=== PATIENT | female | born 1965 | race Caucasian/White ===

== ENCOUNTER 2016-10-21 08:52 | Observation (INO) | payer OTHER ==
[2016-10-21 09:08] VITALS: BMI 33.6
[2016-10-21] MEDS ORDERED: ASPIRIN 325 MG TAB PO ONE (09:18)
[2016-10-21] MEDS ORDERED: SODIUM CHLORIDE 0.9% 3 ML FLUSH FLUSH PRN (09:18)
[2016-10-21] MEDS ORDERED: NS 1,000 ML IV ONE ×2 (09:18)
--- NOTE | 2016-10-21 09:19 | EDPRACDOC ---
<Bhavani Johnson - Last Filed: 10/21/16 11:06> - General Information Information Source: Patient, Family () Mode of Arrival: Car - History of Present Illness Onset: 1 WEEK HPI: PT STATES FOR THE LAST WEEK WHEN SHE HAS BEEN WALKING THE DOG AND DOING NORMAL DAILY ACTIVITIES SHE HAS BEEN BECOMING MORE SOB WITH CHEST HEAVINESS/PRESSURE. NO NAUSEA, RADIATING PAIN DIAPHORESIS OR ALLEVIATING FACTORS AT THIS TIME. PT STATES LAST STRESS TEST APPROX 10 YRS AGO. HAS H/O POLYCYTHEMIA VERA (ELEVATED HGB/HCT) THIS HAS SINCE SUBSIDED AND IS NOT ON TREATMENT OR DOING PERIODIC PHLEBOTOMIES. Chest Pain Location: Reports: Substernal Pain Radiation: Reports: None Symptoms Occur: Reports: Gradually, With light exertion Cardiac Risk Factors: Reports: Hypertension (OVER THE LAST FEW MONTHS NOTICED ELEVATED BP) Cardiac History of: Reports: Stress Test (10 YRS AGO) PE Risk Factors: Reports: None Medications within 24 Hours: Reports: None Prehospital Care: Reports: None Pain Came On: Reports: Gradually Pain Status: Present Now Pain Description: Reports: Pressure, Heavy Pain Severity: Mild Pain Worsens With: Reports: Exertion Pain Improves With: Reports: Nothing Associated Signs and Symptoms: Reports: SOB (WITH EXERTION) <Carlotta Lei - Last Filed: 10/21/16 12:16> - General Information Chief Complaint: Chest Pain Stated Complaint: IRREGULAR HEARTBEAT Time Seen by Provider: 10/21/16 09:18 Home Medications: Home Medications No Home Medications 07/12/15 Allergies/Adverse Reactions: Allergies Allergy/AdvReac Type Severity Reaction Status Date / Time No Known Allergies Allergy Verified 08/06/16 10:51 ED Past Medical History - History Reviewed Yes Nurses notes reviewed and agree except as marked Travel Outside of [place] in the Last 3 Months?: No - Patient Medical History Cardiac History: Reports: Stress Test (10 YRS AGO) Respiratory History: Denies: Pneumonia Systemic History: Denies: Cancer Additional Past Medical History: H/O POLYCYTHEMIA VERA HAS SUBSIDED SINCE Surgical History: Reports: Hysterectomy - Family Medical History Reports: Cancer (DAD), Cardiac Disorders (GRANDMOTHER). Denies: Hypertension, Diabetes, Stroke - Social Medical History Smoking Status: Never smoker ETOH: None Substance Abuse: None Lives With: Spouse Lives In: Home <Carlotta Lei - Last Filed: 10/21/16 12:16> EDM Review of Systems - Review of Systems ROS Negative Except as Marked: Yes All systems reviewed and were negative except as marked Constitutional: No Symptoms Reported. negative: Fever, Chills, Weakness, Fatigue, Loss of Appetite Eyes: No Symptoms Reported. negative: Redness, Blurred Vision, Double Vision, Discharge, Pain, Light Sensitive, Photophobia Ears: No Symptoms Reported. negative: Pain, Hearing Loss, Drainage, Ear Pulling Throat: No Symptoms Reported. negative: Pain, Swelling Nose: No Symptoms Reported. negative: Congestion, Bleeding, Discharge, Injection, Swelling, Deformity, Ecchymosis, Tender, Abrasion, Laceration Mouth: No Symptoms Reported. negative: Pain, Drooling Respiratory: Shortness of Breath (WITH EXERTION). negative: Barky Cough, Brassy Cough, Cough, Hemoptysis, Wheezing Cardiovascular: Chest Pain (EXERTIONAL HEAVY PRESSURE). negative: Cyanosis, Edema, Orthopnea, Palpitations, PND, Syncope, Skin Mottling Gastrointestinal: No Symptoms Reported. negative: Pain, Constipation, Nausea, Vomiting, Diarrhea, Melena, Formula Intolerance Genitourinary: No Symptoms Reported. negative: Dysuria, Hematuria, Frequency, Discharge, Bleeding, Testicular Pain, Neurological: No Symptoms Reported. negative: Headache, Dizziness, Seizure, Numbness, Weakness, Speech Difficulty, Gait Difficulty Musculoskeletal: No Symptoms Reported. negative: Neck, Chestwall, Ribs, Back, Shoulder, Arm, Elbow, Forearm, Wrist, Hand, Pelvis, Hip, Femur, Knee, Leg, Ankle , Foot Integumentary: No Symptoms Reported. negative: Itching, Rash, Bruising, Wound Allergic/Immunologic: No Symptoms Reported. negative: Hives, Itching Hematologic: No Symptoms Reported. negative: Lymphadenopathy, Easy Bruising, Easy Bleeding Endocrine: No Symptoms Reported. negative: Weight Gain, Weight Loss Psychiatric: No Symptoms Reported. negative: Anxiety, Depression, Hallucinations, Insomnia, Suicidal <Carlotta Lei - Last Filed: 10/21/16 12:16> - Physical Exam Last recorded Vital Signs: Last Vital Signs Temp 97.5 F 10/21/16 09:05 Pulse 61 10/21/16 10:14 Resp 20 10/21/16 10:14 BP 131/69 10/21/16 10:14 Pulse Ox 100 10/21/16 10:14 Oxygen Pulse Oxygen Saturation 100 O2 Device Room Air Oxygen Flow Rate Fraction of Inspired Oxygen ( FIO2) <Bhavani Johnson - Last Filed: 10/21/16 11:06> - Physical Exam Constitutional: No apparent distress, Alert (Awake) Oriented to: Time, Person, Place Last recorded Vital Signs: Last Vital Signs Temp 97.5 F 10/21/16 09:05 Pulse 62 10/21/16 09:14 Resp 20 10/21/16 09:14 BP 135/73 10/21/16 09:14 Pulse Ox 97 10/21/16 09:14 Oxygen Pulse Oxygen Saturation 97 O2 Device Room Air Oxygen Flow Rate Fraction of Inspired Oxygen ( FIO2) - HEENT Head: Normal ( normocephalic) Eye Exam: Normal (PERRL, EOMI, Sclera white) Oropharynx: Normal (Pharynx:Moist without exudate,Gums-no swelling) Tympanic Membrane: Normal ENT EAC: Normal TMJ: Normal Nose: No Symptoms Reported (septum midline) Neck: Normal (FROM, trachea at midline) - Respiratory/Cardiovascular Respiratory: Normal - CTA (BBS clear to auscultation without adventitious sounds ) Cardiovascular: Normal (RRR without murmur, gallop or rub) - GI Auscultation: Normal (NABS) Palpation: Normal (Soft,No rebound or guarding, non distended) Tenderness: Non tender Hamilton's Sign: Negative - Bladder: Normal - Musculoskeletal Back: Normal (Non-Tender) Extremities: Normal (Normal tone, Pulses 2+ No cyanosis or edema, FROM) - Integumentary Skin: Normal, Warm, Dry Lymphatics: Normal (no adenopathy) - Neurologic Memory Impaired: Normal Motor Function: Normal (Normal tone, Pulses 2+ No cyanosis or edema, FROM) Cranial Nerve: Normal (CN II-X11 intact sensation, strength 5/5) Cerebellar: Normal Mood Description: Normal Perception: Normal <Carlotta Lei - Last Filed: 10/21/16 12:16> ED Chest Pain Exam - Respiratory/Cardiovascular Respiratory: Normal - CTA Cardiovascular/Chest: Normal Radial Pulse: Normal Femoral Pulse: Normal Pedal Pulse: Normal Carotid Arteries: Normal Chest Palpation: Normal <Carlotta Lei - Last Filed: 10/21/16 12:16> - Results 10/21/16 09:35 10/21/16 09:35 WBC 3.9 xk/uL (3.8-10.8) 10/21/16 09:35 RBC 5.28 xM/uL (4.20-5.40) 10/21/16 09:35 Hgb 15.9 g/dL (12.0-16.0) 10/21/16 09:35 Hct 46.5 % (36-47) 10/21/16 09:35 MCV 88 fL (81-99) 10/21/16 09:35 MCH 30.1 pg (27-32) 10/21/16 09:35 MCHC 34.2 g/dl (33-36) 10/21/16 09:35 RDW 12.8 % (11.5-14.5) 10/21/16 09:35 Plt Count 176 xk/uL (130-400) 10/21/16 09:35 MPV 7.4 fL (7.4-10.4) 10/21/16 09:35 Neut % (Auto) 49.9 % (45-76) 10/21/16 09:35 Lymph % (Auto) 32.8 % (17-44) 10/21/16 09:35 Todd % (Auto) 9.1 % (3-10) 10/21/16 09:35 Eos % (Auto) 7.8 % (0-5) H 10/21/16 09:35 Baso % (Auto) 0.4 % (0-2) 10/21/16 09:35 Absolute Neuts (auto) 1.91 xk/uL (1.7-8.2) 10/21/16 09:35 Absolute Lymphs (auto) 1.25 xk/uL (0.65-4.75) 10/21/16 09:35 PT 10.8 SEC (9.2-11.2) 10/21/16 09:35 INR 1.1 10/21/16 09:35 APTT 39.5 SEC (22-35) H 10/21/16 09:35 Sodium 140 mEq/L (137-146) 10/21/16 09:35 Potassium 3.9 mEq/L (3.5-5.1) 10/21/16 09:35 Chloride 109 mEq/L (98-107) H 01/31/17 09:35 Carbon Dioxide 20 mMOL/L (22-33) L 10/21/16 09:35 Anion Gap 15 mEq/L (8-16) 10/21/16 09:35 BUN 16 MG/DL (7-17) 10/21/16 09:35 Creatinine 0.50 MG/DL (0.52-1.04) L 10/21/16 09:35 Estimated GFR (MDRD) > 60 mL/min (>=60) 10/21/16 09:35 Glucose 84 MG/DL (70-99) 10/21/16 09:35 Calculated Osmolality 269 MOs/Kg (270-290) L 10/21/16 09:35 Calcium 9.2 MG/DL (8.4-10.2) 10/21/16 09:35 Total Bilirubin 0.6 MG/DL (0.2-1.3) 10/21/16 09:35 AST 32 IU/L (14-36) 10/21/16 09:35 ALT 52 IU/L (9-52) 10/21/16 09:35 Alkaline Phosphatase 107 IU/L (38-126) 10/21/16 09:35 Troponin I < 0.01 ng/mL (<.04) 10/21/16 09:35 Wsv-Q-Nlcetknckpi Pept 56 pg/mL (0-900) 10/21/16 09:35 Total Protein 6.8 G/DL (6.3-8.2) 10/21/16 09:35 Albumin 4.2 G/DL (3.5-5.0) 10/21/16 09:35 Urine Color Yellow 10/21/16 09:50 Urine Clarity Clear 10/21/16 09:50 Urine pH 5.0 (5.0-8.0) 10/21/16 09:50 Ur Specific [place] 1.020 (1.003-1.035) 10/21/16 09:50 Urine Protein Neg (NEG/TRACE) 10/21/16 09:50 Urine Glucose (UA) Neg (NEGATIVE) 10/21/16 09:50 Urine Ketones Neg (NEGATIVE) 10/21/16 09:50 Urine Occult Blood Trace (NEG/TRACE) 10/21/16 09:50 Urine Nitrite Neg (NEGATIVE) 10/21/16 09:50 Urine Bilirubin Neg (NEGATIVE) 10/21/16 09:50 Urine Urobilinogen 0.2 MG/DL (0-1) 10/21/16 09:50 Ur Leukocyte Esterase Trace (NEGATIVE) 10/21/16 09:50 Urine RBC 0-2 (0-5) 10/21/16 09:50 Urine WBC 2-5 (0-5) 10/21/16 09:50 Ur Epithelial Cells 2+ 10/21/16 09:50 Urine Bacteria Few (NEG/FEW) 10/21/16 09:50 Urine Mucus Occ (NEG/OCC) 10/21/16 09:50 Lab Results 10/21/16 10/21/16 10/21/16 09:50 09:35 09:35 WBC 3.9 RBC 5.28 Hgb 15.9 Hct 46.5 MCV 88 MCH 30.1 MCHC 34.2 RDW 12.8 Plt Count 176 MPV 7.4 Neut % (Auto) 49.9 Lymph % (Auto) 32.8 [place] % (Auto) 9.1 Eos % (Auto) 7.8 H Baso % (Auto) 0.4 Absolute Neuts (auto) 1.91 Absolute Lymphs (auto) 1.25 PT 10.8 INR 1.1 APTT 39.5 H Sodium Potassium Chloride Carbon Dioxide Anion Gap BUN Creatinine Estimated GFR (MDRD) Glucose Calculated Osmolality Calcium Total Bilirubin AST ALT Alkaline Phosphatase Troponin I Lbo-Y-Jlragbsdyhz Pept Total Protein Albumin Urine Color Yellow Urine Clarity Clear Urine pH 5.0 Ur Specific [place] 1.020 Urine Protein Neg Urine Glucose (UA) Neg Urine Ketones Neg Urine Occult Blood Trace Urine Nitrite Neg Urine Bilirubin Neg Urine Urobilinogen 0.2 Ur Leukocyte Esterase Trace Urine RBC 0-2 Urine WBC 2-5 Ur Epithelial Cells 2+ Urine Bacteria Few Urine Mucus Occ 10/21/16 09:35 WBC RBC Hgb Hct MCV MCH MCHC RDW Plt Count MPV Neut % (Auto) Lymph % (Auto) [place] % (Auto) Eos % (Auto) Baso % (Auto) Absolute Neuts (auto) Absolute Lymphs (auto) PT INR APTT Sodium 140 Potassium 3.9 Chloride 109 H Carbon Dioxide 20 L Anion Gap 15 BUN 16 Creatinine 0.50 L Estimated GFR (MDRD) > 60 Glucose 84 Calculated Osmolality 269 L Calcium 9.2 Total Bilirubin 0.6 AST 32 ALT 52 Alkaline Phosphatase 107 Troponin I < 0.01 Fmg-E-Ayhzggvlmfy Pept 56 Total Protein 6.8 Albumin 4.2 Urine Color Urine Clarity Urine pH Ur Specific [place] Urine Protein Urine Glucose (UA) Urine Ketones Urine Occult Blood Urine Nitrite Urine Bilirubin Urine Urobilinogen Ur Leukocyte Esterase Urine RBC Urine WBC Ur Epithelial Cells Urine Bacteria Urine Mucus Laboratory Results - last 24 hr 10/21/16 10/21/16 10/21/16 09:35 09:35 09:35 WBC 3.9 RBC 5.28 Hgb 15.9 Hct 46.5 MCV 88 MCH 30.1 MCHC 34.2 RDW 12.8 Plt Count 176 MPV 7.4 Neut % (Auto) 49.9 Lymph % (Auto) 32.8 Todd % (Auto) 9.1 Eos % (Auto) 7.8 H Baso % (Auto) 0.4 Absolute Neuts (auto) 1.91 Absolute Lymphs (auto) 1.25 PT 10.8 INR 1.1 APTT 39.5 H Sodium 140 Potassium 3.9 Chloride 109 H Carbon Dioxide 20 L Anion Gap 15 BUN 16 Creatinine 0.50 L Estimated GFR (MDRD) > 60 Glucose 84 Calculated Osmolality 269 L Calcium 9.2 Total Bilirubin 0.6 AST 32 ALT 52 Alkaline Phosphatase 107 Troponin I < 0.01 Ewf-Z-Siazawkjqkk Pept 56 Total Protein 6.8 Albumin 4.2 Urine Color Urine Clarity Urine pH Ur Specific [place] Urine Protein Urine Glucose (UA) Urine Ketones Urine Occult Blood Urine Nitrite Urine Bilirubin Urine Urobilinogen Ur Leukocyte Esterase Urine RBC Urine WBC Ur Epithelial Cells Urine Bacteria Urine Mucus 10/21/16 09:50 WBC RBC Hgb Hct MCV MCH MCHC RDW Plt Count MPV Neut % (Auto) Lymph % (Auto) [place] % (Auto) Eos % (Auto) Baso % (Auto) Absolute Neuts (auto) Absolute Lymphs (auto) PT INR APTT Sodium Potassium Chloride Carbon Dioxide Anion Gap BUN Creatinine Estimated GFR (MDRD) Glucose Calculated Osmolality Calcium Total Bilirubin AST ALT Alkaline Phosphatase Troponin I Qqk-Q-Dolqqixfuyx Pept Total Protein Albumin Urine Color Yellow Urine Clarity Clear Urine pH 5.0 Ur Specific [place] 1.020 Urine Protein Neg Urine Glucose (UA) Neg Urine Ketones Neg Urine Occult Blood Trace Urine Nitrite Neg Urine Bilirubin Neg Urine Urobilinogen 0.2 Ur Leukocyte Esterase Trace Urine RBC 0-2 Urine WBC 2-5 Ur Epithelial Cells 2+ Urine Bacteria Few Urine Mucus Occ Laboratory Results 10/21/16 09:35 10/21/16 09:35 <Bhavani Johnson - Last Filed: 10/21/16 11:06> - Differential Diagnosis Angina, Myocardial infarction, Other (UNSTABLE ANGINA) - Action Patient received Aspirin within last 24 hours?: No ASA given in the ED: Yes Patient received Beta Gabriela within last 24hrs: No - Results All Results Reviewed and Normal except as Highlighted below: Yes 10/21/16 09:35 10/21/16 09:35 - EKG EKG #1 EKG Time: 09:00 -: Yes EKG interpreted by me Rate: bpm: 68 [place]: Normal Rhythm: NSR Block: None Hypertrophy: None ST: Normal - Diagnostic Imaging CXR Image interpreted by: Radiologist IMPRESSION: No active disease. Right IJ Port-A-Cath in place. <Carlotta Lei - Last Filed: 10/21/16 12:16> - Departure Education/Counseling Given To: Patient, Family Member Education/Counseling Given Regarding: Diagnosis, Treatment, Prognosis Decision to Admit Time: 11:07 Decision to admit date: 10/21/16 Decision to admit: from ED - Physician Consulted Hospitalist Time Called: 11:07 Provider Called: Jose Elias Gooden Time Economics Professor Returned Call: 11:07 <Bhavani Johnson - Last Filed: 10/21/16 11:06> <Carlotta Lei - Last Filed: 10/21/16 12:16> - Departure Condition: Stable Final Diagnosis: Chest pain Qualifiers: Chest pain type: unspecified Qualified Code(s): R07.9 - Chest pain, unspecified Instructions: Chest Pain (ED), Chest Wall Pain (ED) Referrals: Gregg Anderson II, MD [Primary Care Provider] - One Week Prescriptions: No Action No Home Medications 0 NA DIR #0 info
[2016-10-21 09:48] LABS: AUTOMATED BASOPHIL 0.4 % (0-2); AUTOMATED EOSINOPHIL 7.8 % (0-5); AUTOMATED LYMPH 32.8 % (17-44); AUTOMATED MONOCYTE 9.1 % (3-10); AUTOMATED NEUTROPHIL 49.9 % (45-76); MPV 7.4 fL (7.4-10.4)
[2016-10-21 09:58] LABS: RBC/URINE 0-2 (0-5)
[2016-10-21 09:59] LABS: PARTIAL THROMB. TIME 39.5 SEC (22-35); PT-INR 1.1
--- NOTE | 2016-10-21 10:07 | DIRPT ---
CLINICAL DATA: Chest pain starting last week when she was walking the dog EXAM: PORTABLE CHEST 1 VIEW COMPARISON: 10/19/2007 FINDINGS: Cardiomediastinal silhouette is unremarkable. Right IJ Port-A-Cath is stable in position. No acute infiltrate or pleural effusion. No pulmonary edema. Mild degenerative changes thoracic spine. IMPRESSION: No active disease. Right IJ Port-A-Cath in place. Electronically Signed By: Ronnie Madrigal M.D. On: 10/21/2016 10:05
[2016-10-21 10:11] LABS: URINE OCCULT BLOOD TRACE (NEG/TRACE)
[2016-10-21 10:12] LABS: NITRITE/URINE NEG (NEGATIVE)
[2016-10-21 10:12] LABS: BLOOD UREA NITROGEN 16 MG/DL (7-17); CALCIUM 9.2 MG/DL (8.4-10.2); CALCULATED OSMOLALITY 269 MOs/Kg (270-290); CHLORIDE 109 mEq/L (98-107); GLUCOSE 84 MG/DL (70-99); SODIUM LEVEL 140 mEq/L (137-146); TOTAL PROTEIN 6.8 G/DL (6.3-8.2)
[2016-10-21 10:13] LABS: LEUKOCYTES/URINE TRACE (NEGATIVE)
[2016-10-21] MEDS ORDERED: NITROGLYCERINE 0.4 MG TAB SL PRN ×2 (10:37→11:47)
[2016-10-21] MEDS ORDERED: Enoxaparin 1 mg per kg per dose SQ ONE (11:05)
[2016-10-21] MEDS ORDERED: ENOXAPARIN 100 MG PFS SQ ONE (11:30)
[2016-10-21] MEDS ORDERED: ACETAMINOPHEN 325 MG/TAB TABLET PO PRN (11:47)
[2016-10-21] MEDS ORDERED: GUAIFENESIN 200 MG/10 ML UDC PO PRN (11:47)
[2016-10-21] MEDS ORDERED: ONDANSETRON HCL 4 MG/2 ML VIAL IV PRN (11:47)
[2016-10-21] MEDS ORDERED: ZOLPIDEM TARTRATE 5 MG TAB PO PRN (11:47)
[2016-10-21] MEDS ORDERED: BENZONATATE 100 MG PERLES PO PRN (11:47)
[2016-10-21] MEDS ORDERED: PROMETHAZINE 25 MG/ML VIAL IV PRN (11:47)
[2016-10-21] MEDS ORDERED: Docusate Sodium 100 MG CAP PO PRN (11:47)
[2016-10-21] MEDS ORDERED: MAGNESIUM HYDROXIDE 30 ML BOTTLE PO PRN (11:47)
[2016-10-21] MEDS ORDERED: Pharmacy Order Set Alert SCH (12:00)
[2016-10-21] MEDS ORDERED: Vaccine Screening Complete SCH (15:00)
--- NOTE | 2016-10-21 16:37 | HISTPHYS ---
- Chief Complaint Chest pain - History of Present Illness Ms. Fry is a very pleasant 51-year-old white female previously very healthy other than a history of polycythemia vera that improved with sinus surgery. She presents to the emergency room with 1 week of intermittent chest tightness. She has noted that is been much worse when she goes on walks and often presents with shortness of breath. She has not had any associated diaphoresis or nausea. She does state that she has felt like her heart has been skipping and flipping beats. No clear palpitations and she has not felt any rapid heart beats. She denies any previous heart history. She denies any other complaints at this time. She is being admitted under chest pain center protocol for further evaluation and stress testing. - Medical History Cardiac History: Reports: No Significant History Respiratory History: Reports: No Significant History. Denies: Pneumonia GI/ History: Reports: No Significant History Musculoskeletal History: Reports: No Significant History Systemic History: Denies: Anemia (History of polycythemia vera which improved with sinus surgery) Neurological History: Reports: No Significant History Psychological History: Reports: No Significant History. Denies: Depression - Surgical History Reports: Hysterectomy - Medictions/Allergies Allergies No Known Allergies Allergy (Verified 08/06/16 10:51) Current Medication List: Reviewed Home Medications No Home Medications 07/12/15 - Family History Reports: Cancer (DAD), Cardiac Disorders (GRANDMOTHER). Denies: Hypertension, Diabetes, Stroke - Social History Travel Outside of [place] in the Last 3 Months?: No Lives: with Spouse Smoking Status: Never smoker Social History: Denies: Alcohol Use - Review of Systems Yes All systems reviewed and were negative except as marked Constitutional: Fatigue, Weakness. negative: Chills, Fever, Loss of Appetite - Eyes No Symptoms Reported. negative: Blurred Vision, Double Vision, Redness - Ears No Symptoms Reported. negative: Drainage, Hearing Loss - Nose No Symptoms Reported. negative: Abrasion, Bleeding, Congestion - Mouth Mouth: No Symptoms Reported. negative: Pain, Drooling - Throat/Neck No Symptoms Reported. negative: Pain, Swelling, Hoarseness - Respiratory Shortness of Breath. negative: Cough, Wheezing - Cardiovascular Chest Pain. negative: Orthopnea, Syncope - Gastrointestinal Gastrointestinal: No Symptoms Reported. negative: Nausea, Vomiting - Genitourinary Genitourinary: No Symptoms Reported. negative: Bleeding, Dysuria, Discharge, Frequency - Neurological No Symptoms Reported. negative: Dizziness, Seizure, Speech Difficulty - Musculoskeletal Musculoskeletal:: No Symptoms Reported. negative: Chronic low back pain, Stiffness, Gout - Integumentary No Symptoms Reported. negative: Bruising, Rash, Wound - Allergic/Immunologic No Symptoms Reported. negative: Hives, Itching - Hematologic No Symptoms Reported. negative: Lymphadenopathy, Easy Bleeding, Anemia - Endocrine No Symptoms Reported - Psychiatric No Symptoms Reported. negative: Anxiety, Hallucinations - Physical Exam Constitutional: No apparent distress, Alert (Awake), Well nourished, Well appearing Oriented to: Time, Person, Place Exam: Last Vital Signs Temp 98.2 F 10/21/16 14:45 Pulse 61 10/21/16 14:45 Resp 18 10/21/16 14:45 BP 138/71 10/21/16 14:45 Pulse Ox 100 10/21/16 14:45 Intake & Output 10/21/16 10/21/16 10/21/16 07:59 15:59 23:59 Intake Total 1365 Balance 1365 Patient's weight 83.461 kg - HEENT Head: Normal ( normocephalic) Eye: Normal (PERRL, EOMI, Sclera white) Oropharynx: Normal (Pharynx:Moist without exudate,Gums-no swelling) Tympanic Membrane: Normal ENT EAC: Normal TMJ: Normal Nose: No Symptoms Reported (septum midline) - Respiratory/Cardiovascular Respiratory: Normal - CTA Cardiovascular: Normal - GI Auscultation: Normal (NABS) Palpation: Normal (Soft,No rebound or guarding, non distended) Tenderness: Non tender - Musculoskeletal Back: Normal (Non-Tender) Extremities: Normal (Normal tone, Pulses 2+ No cyanosis or edema, FROM) - Integumentary Skin: Normal, Warm, Dry Lymphatics: Normal (no adenopathy) - Neurologic Memory Impaired: Normal Motor Function: Normal Cranial Nerve: Normal Cerebellar: Normal Mood Description: Normal Thought: Coherent Perception: Normal - Focused CV Perfusion Exam Vital Signs: Last Vital Signs Temp 98.2 F 10/21/16 14:45 Pulse 61 10/21/16 14:45 Resp 18 10/21/16 14:45 BP 138/71 10/21/16 14:45 Pulse Ox 100 10/21/16 14:45 - Lab Results Laboratory Results - last 24 hr 10/21/16 10/21/16 10/21/16 09:35 09:35 09:35 WBC 3.9 RBC 5.28 Hgb 15.9 Hct 46.5 MCV 88 MCH 30.1 MCHC 34.2 RDW 12.8 Plt Count 176 MPV 7.4 Neut % (Auto) 49.9 Lymph % (Auto) 32.8 [place] % (Auto) 9.1 Eos % (Auto) 7.8 H Baso % (Auto) 0.4 Absolute Neuts (auto) 1.91 Absolute Lymphs (auto) 1.25 PT 10.8 INR 1.1 APTT 39.5 H Sodium 140 Potassium 3.9 Chloride 109 H Carbon Dioxide 20 L Anion Gap 15 BUN 16 Creatinine 0.50 L Estimated GFR (MDRD) > 60 Glucose 84 Calculated Osmolality 269 L Calcium 9.2 Total Bilirubin 0.6 AST 32 ALT 52 Alkaline Phosphatase 107 Troponin I < 0.01 Pam-M-Lcneiwckfyz Pept 56 Total Protein 6.8 Albumin 4.2 Urine Color Urine Clarity Urine pH Ur Specific [place] Urine Protein Urine Glucose (UA) Urine Ketones Urine Occult Blood Urine Nitrite Urine Bilirubin Urine Urobilinogen Ur Leukocyte Esterase Urine RBC Urine WBC Ur Epithelial Cells Urine Bacteria Urine Mucus 10/21/16 10/21/16 09:50 13:15 WBC RBC Hgb Hct MCV MCH MCHC RDW Plt Count MPV Neut % (Auto) Lymph % (Auto) [place] % (Auto) Eos % (Auto) Baso % (Auto) Absolute Neuts (auto) Absolute Lymphs (auto) PT INR APTT Sodium Potassium Chloride Carbon Dioxide Anion Gap BUN Creatinine Estimated GFR (MDRD) Glucose Calculated Osmolality Calcium Total Bilirubin AST ALT Alkaline Phosphatase Troponin I < 0.01 Lsi-L-Pdodgkzmiyo Pept Total Protein Albumin Urine Color Yellow Urine Clarity Clear Urine pH 5.0 Ur Specific [place] 1.020 Urine Protein Neg Urine Glucose (UA) Neg Urine Ketones Neg Urine Occult Blood Trace Urine Nitrite Neg Urine Bilirubin Neg Urine Urobilinogen 0.2 Ur Leukocyte Esterase Trace Urine RBC 0-2 Urine WBC 2-5 Ur Epithelial Cells 2+ Urine Bacteria Few Urine Mucus Occ - Assessment (1) Chest pain R07.9 - CHEST PAIN, UNSPECIFIED Acute Present on Admission: Yes Qualifiers: Chest pain type: unspecified Qualified Code(s): R07.9 - Chest pain, unspecified Somewhat concerning history with exertional dyspnea. She has also been having some palpitations as well. Clearly warrants observation overnight. Will check 2D echo to evaluate for valvular disease and cardiomyopathy. If this is negative and serial cardiac enzymes are negative she will need a stress test (2) Shortness of breath R06.02 - SHORTNESS OF BREATH Acute Present on Admission: Yes Occurs with exertion. Ruling out cardiac disease. (3) Polycythemia vera Acute Present on Admission: Yes Hemoglobin 15.9 currently. She states that this improved when she had sinus surgery was able to breathe better. (4) Palpitations R00.2 - PALPITATIONS Acute Present on Admission: Yes Monitor on telemetry. 2D echo. Case Care Discussed with: Patient, Family
[2016-10-21] MEDS: SODIUM CHLORIDE 0.9% 3 ML FLUSH FLUSH SCH (16:49)
--- NOTE | 2016-10-21 17:30 | CAPUECHO ---
INDICATION: SOB / CP HEIGHT: 157.5 cm (5 ft 2.0 in) WEIGHT: 83.0 kg (183.0 lbs) BP: 129/77 BSA: 1.462347 m MEASUREMENTS 2D EF Biplane: 62.65 % LAESV MOD A4C: 52.6 ml LAESV MOD A2C: 43.6 ml LAESV Index (A-L): 30.01 ml/m M-MODE IVSd: 0.9 cm LVIDd: 4.6 cm LVPWd: 0.9 cm LVIDs: 3.1* cm EF(Teich): 62 % Ao Diam: 3.1 cm LA Diam: 3.6 cm DOPPLER MV E Hever: 0.85 m/s MV A Hever: 0.73 m/s MV PHT: 47.06 ms MVA By PHT: 4.67 cm AV Vmax: 1.33 m/s TR Vmax: 1.81 m/s TR maxP mmHg RVSP: 23.13 mmHg FINDINGS ------- Procedure:2D images, m-mode, color and spectral Doppler were obtained and reviewed. ECG rhythm:Sinus rhythm. Study quality:This was a technically adequate study. Left Ventricle:The left ventricular chamber size and wall thickness are normal. Normal systolic f unction, no segmental abnormality. Overall left ventricular systolic function is normal with, an EF between 60 - 65 %. The diastolic filling pattern is normal for the age of the patient. Right Ventricle:The right ventricle is normal in size and function. Left Atrium:The left atrium is normal in size. Right Atrium:The right atrium is normal in size and function. Septum normal. Aortic Valve:There is mild aortic valve sclerosis. Pliable leaflets. There is trace aortic regu rgitation. Mitral Valve:Normal appearing mitral valve. There is trace mitral regurgitation. Tricuspid Valve:The tricuspid valve appears structurally normal. Trace tricuspid regurgitation pre sent. The right ventricular systolic pressure, as measured by Doppler, is 23 mmhg. Pulmonic Valve:The pulmonic valve is normal. Trace/mild (physiologic) pulmonic regurgitation. Aorta:The aortic root, ascending aorta and aortic arch appear normal. IVC:The inferior vena cava is mildly dilated with poor inspiratory collapse Pericardium:There is no pericardial effusion. CONCLUSIONS 1. normal left ventricular size and systolic function, EF 62%, no segmental abnormality 2. eduar l right herat size/function, mild caval dilatation, mild TR, normal pulm artery pressure suggested 3. aortic sclerosis, no significant valvular heart disease Electronically Signed By: William Alford MD-- Electronically Signed On: 17:20:31
[2016-10-22 07:00] LABS: LDL (calc.) 110.6 MG/DL (<100); VLDL (calc.) 18.4 MG/DL (5-40)
[2016-10-22 07:38] VITALS: TEMP 97.8
[2016-10-22] MEDS: SODIUM CHLORIDE 0.9% 3 ML FLUSH FLUSH SCH (07:48)
[2016-10-22] MEDS ORDERED: PNEUMOCOCCAL 0.5 ML VIAL IM ONE (08:00)
[2016-10-22] MEDS ORDERED: ASPIRIN (CHEWABLE) 81 MG TAB PO SCH (08:00)
[2016-10-22] MEDS ORDERED: SODIUM CHLORIDE 0.9% 10 ML FLUSH FLUSH ONE (08:00)
[2016-10-22] MEDS ORDERED: REGADENOSON 0.4 MG/5 ML SYRINGE IV ONE (08:00)
[2016-10-22] MEDS ORDERED: FLU VACCINE (Afluria) 0.5 ML DOSE IM ONE (08:00)
[2016-10-22] MEDS ORDERED: SESTAMIBI 8 MCI V IV ONE (10:13)
[2016-10-22 11:19] VITALS: BP 123/58
--- NOTE | 2016-10-22 11:40 | PCM.STRESS ---
TREADMILL/REGADENOSON MYOCARDIAL PERFUSION STRESS TEST DATE OF PROCEDURE: 10/22/16 INDICATION: Chest discomfort - MT ruled out RESTING DATA: HR 58 B/P 128/88 Chest clear Cor: Normal heart sounds, soft ejection murmur RESTING EKG: [NSR] sinus bradycardia. Otherwise normal tracing PROTOCOL: Approx 8 mCi of technetium-99m pyrophosphate (Cardiolyte) was injected intravenously and tomograhic imaging performed at rest. An hour later, the patient performed treadmilll exericse on a Arya protocol to a level of 7 METS. The patient became dyspneic and fatigued and felt unable to continue. Because of failure to achieve target heart rate, 0.4 mg of regadenoson was administered intravenously during continued exercise, followed by an additional 25 mCi of Cardiolite. Following the regadenoson, heart rate susi to 153 per minute, 91% of predicted maximum. Blood pressure had risen to 168/86. No chest pain. STRESS EKG: Rhythm: Sinus. ST-T changes: [address] depression diffusely, a nonspecific response MYOCARDIAL PERFUSION IMAGING: Rotational display of raw projection data documents [stable pt position during imaging]. There is a very small area of mild decreased counts density in the anteroseptal segment at mid ventricular level on stress imaging only, with more normal resting images, , of doubtful significance. The possibility of a localized area of mild ischemia cannot be excluded however. Perfusion scans are otherwise normal. Gated imaging discloses normal wall thickening in all segments within normal end-systolic volume of 21 mL and an ejection fraction of 71% IMPRESSION: (1) Functional capacity is fair for age. 7 METS (2) Normal resting left ventricular size and function, with end-systolic volume of 21 ml and ejection fraction of 71 %. (3) Clinically negative, but a small area of anterior scintigraphic ischemia cannot be excluded. Mildly abnormal Treadmill perfusion stress test for ischemia. (small defect, non-specific ST changes, fair exercise tolerance) COMMENT: based on limited severity and extent of perfusion defect, this is a "low-risk" myocardial perfusion stress test
--- NOTE | 2016-10-22 12:49 | PCM.CARDCO ---
Consultation Date: 10/22/16 Requesting Physician: Dylan Echeverria ([facility] stress) Consulting Doctor: William Alford Travel Outside of [place] in the Last 3 Months?: No Consultation Note: History of Present Illness: Pleasant 51 yo alyce-menopausal WF with hx of erythrocythemia that improved following nasal surgery, no ongoing phlebotomies, no other PMH or chronic meds. Presented to hosp with hx of a week or so of more prominent exertional dyspnea while walking dog in h[place] terrain, to the point of mild chest "pressure" at times with no radiation to neck, jaw, arms or back. No associated sx. Discomfort non-limiting. No discomfort or dyspnea at rest. She has for some time had rare palpitations perceived as fleeing "flutters", and these are also a little more prominent of late. No sustained rapid heart action, syncope or near-syncope Risk factors neg: no DM, HBP. Never smoked, no FH of CAD Lipids noted (see labs). Past Medical History: erythrocythemia, no recent phlebotomies Allergies No Known Allergies Allergy (Verified 08/06/16 10:51) Home Medications No Home Medications 07/12/15 Family History: father of CA metastatic to liver; mother and 2 sisters alive and free of heart disease Social History: Traveled outside the [place] in the last 3 months? No Never smoker , lives with , present for consult Review of Systems: 10 systemt neg: no fever, arthralgias, cough, hemoptysis. Physical Examination: Temperature: 97.8 F (10/22/16 11:19)HR: 69 (10/22/16 11:19)RR: 18 (10/22/16 11: 19)BP: 123/58 (10/22/16 11:19) SAT:100 (10/22/16 11:19) Physical Exam GEN: age appropriate, overwieght in NAD VS: as above HEENT: no JVD, carotids normal CHEST: clear,no chest wall tenderness COR: RR, normal s1, s2, Gr 1/6 CHUN ABD: soft, no distention EXTREM: rad, PT 2+ bialt, no edema SKIN: warm, dry, no exanthems NEURO: normal mental status, no focal motor deficit LAB/DI: [] Laboratory Tests 10/21/16 10/21/16 10/21/16 09:35 09:35 13:15 WBC 3.9 Hgb 15.9 Hct 46.5 Plt Count 176 Sodium 140 Potassium 3.9 Chloride 109 H Carbon Dioxide 20 L BUN 16 Creatinine 0.50 L Estimated GFR (MDRD) > 60 Total Bilirubin 0.6 AST 32 ALT 52 Alkaline Phosphatase 107 Troponin I < 0.01 < 0.01 Iwa-S-Tgkvqcqvnuv Pept 56 Albumin 4.2 Triglycerides Cholesterol LDL Cholesterol, Calc HDL Cholesterol 10/21/16 10/22/16 16:45 06:05 WBC Hgb Hct Plt Count Sodium Potassium Chloride Carbon Dioxide BUN Creatinine Estimated GFR (MDRD) Total Bilirubin AST ALT Alkaline Phosphatase Troponin I < 0.01 Ypc-N-Apntepxyzjh Pept Albumin Triglycerides 92 Cholesterol 184 LDL Cholesterol, Calc 110.6 H HDL Cholesterol 55.0 EKGs: sinus bradycardia, otherwise normal Echo yesterday: normal study, normal biventricular function, normal PA pressure suggested CXR: No active disease. RIJ chas cath (for prior phlebotomies) Perfusion stress today: 7 METs, limited by dyspnea, minor non-specific upsloping sT depression, small mild anterior perfusion defect on stress only IMPRESSION: non-specific symptoms of recent onset, non-limiting, but consistent with angina equivocal or mildly abnormal stress test - Recommendations REC: discussed trial of medical rx, clinical f/u vs going to definitive coronary angiographic eval. Value/limitations of stress testing reviewed, nature and risks (MA/arrest/CVA 09/999) of cath discussed, possibility of ? minor diagonal branch disease, potential indication for angioplasty/stent reviewed. Pt is very opposed to statin therapy (argues against intervention) b/o mother's severe reaction. She/ are comfortable with trial of med rx, close clinical f/u, reserve cath for worsening sx. Accepts proposal for f/u with me as well as Dr. Anderson. Suggest discharge on diltiazem CR 120 mg/day (not beta jennifer b/o resting HR 50s), and prn sl NTG.
[2016-10-22 14:21] VITALS: PULSE 78
--- NOTE | 2016-10-22 15:10 | PCM.DCS92 ---
- Final/Secondary Discharge Diagnosis (1) Chest pain Acute R07.9 - CHEST PAIN, UNSPECIFIED Present on Admission: Yes unspecified R07.9 - Chest pain, unspecified Comment: Somewhat concerning history with exertional dyspnea. She has also been having some palpitations as well. Clearly warrants observation overnight. Will check 2D echo to evaluate for valvular disease and cardiomyopathy. If this is negative and serial cardiac enzymes are negative she will need a stress test (2) Palpitations Acute R00.2 - PALPITATIONS Present on Admission: Yes Comment: Monitor on telemetry. 2D echo. (3) Polycythemia vera Acute Present on Admission: Yes Comment: Hemoglobin 15.9 currently. She states that this improved when she had sinus surgery was able to breathe better. (4) Shortness of breath Acute R06.02 - SHORTNESS OF BREATH Present on Admission: Yes Comment: Occurs with exertion. Ruling out cardiac disease. Discharge Disposition: Home Discharge Condition: Stable Cognitive Discharge Status: Unimpaired Fuctional Discharge Status: Independent Physician Follow up/Referrals: Gregg Anderson II, MD [Primary Care Provider] - One Week William Alford MD [Staff Physician] - One Month Home Medications / New Prescriptions: New Aspirin [Aspirin, Chewable] 81 mg PO DAILYWM #100 tablet Diltiazem HCl [Cardizem Cd] 120 mg PO DAILY #30 capsule.cr Nitroglycerin Sublingual Tab [NTG (NitroStat Sublingual Tab)] 0.4 mg SL Q5MIN PRN #100 tablet PRN Reason: Chest Pain Or Discomfort Losartan Potassium [Cozaar] 25 mg PO DAILY #30 tab Rosuvastatin Calcium [Crestor] 20 mg PO DAILY #15 tab Discharge Home Medication List Aspirin [Aspirin, Chewable] 81 mg PO DAILYWM #100 tablet 10/22/16 [Rx Last Taken Unknown] Diltiazem HCl [Cardizem Cd] 120 mg PO DAILY #30 capsule.cr 10/22/16 [Rx Last Taken Unknown] Losartan Potassium [Cozaar] 25 mg PO DAILY #30 tab 10/22/16 [Rx Last Taken Unknown] Nitroglycerin Sublingual Tab [NTG (NitroStat Sublingual Tab)] 0.4 mg SL Q5MIN PRN #100 tablet 10/22/16 [Rx Last Taken Unknown] Rosuvastatin Calcium [Crestor] 20 mg PO DAILY #15 tab 10/22/16 [Rx Last Taken Unknown] 10/21/16 09:35 10/22/16 06:05 Laboratory Results - last 24 hr 10/21/16 10/22/16 16:45 06:05 Glucose 78 Troponin I < 0.01 Triglycerides 92 Cholesterol 184 LDL Cholesterol, Calc 110.6 H VLDL Cholesterol, Calc 18.4 HDL Cholesterol 55.0 Cholesterol/HDL Ratio 3.3 O2 Device: Room Air Diet at Discharge: Heart Healthy Activity: As Tolerated Discontinue use of:: Alcohol, All Types of Tobacco - DC Summary Notes HPI/Notes: Ms. Ratliff is a very pleasant 51-year-old white female previously very healthy other than a history of polycythemia vera that improved with sinus surgery. She presents to the emergency room with 1 week of intermittent chest tightness. She has noted that is been much worse when she goes on walks and often presents with shortness of breath. She has not had any associated diaphoresis or nausea. She does state that she has felt like her heart has been skipping and flipping beats. No clear palpitations and she has not felt any rapid heart beats. She denies any previous heart history. She denies any other complaints at this time. She is being admitted under chest pain center protocol for further evaluation and stress testing. Hospital Course Note:: Discharge summary on patient named LEONOR RATLIFF admitted to [facility] on 10/21/16 by Jose Elias Gooden MD. Date of discharge is . She was admitted with chest pain last night had a mildly positive nuclear stress test this morning suggesting ischemia the distal anterior wall. Dr. Alford was consulted and recommended medical therapy. Since she became bradycardic on the beta-jennifer she took last night he felt that she should have low-dose Cardizem at 120mg CD. Also she will be started on low-dose Cozaar Crestor and aspirin for suspected coronary artery disease given the positive stress. She also had an echocardiogram that showed normal diastolic function with an ejection fraction 60% and no evidence of aortic stenosis which she indicates that runs in her family as well as subclavian steal syndrome. CC: Dr. Monica Alford Total Time: 38 min Code: 47779 (>30min.) - Physical Exam Vital Signs: Last Vital Signs Temp 97.8 F 10/22/16 11:19 Pulse 78 10/22/16 14:21 Resp 18 10/22/16 11:19 BP 123/58 L 10/22/16 11:19 Pulse Ox 100 10/22/16 11:19 Oxygen Pulse Oxygen Saturation 100 O2 Device Room Air Oxygen Flow Rate 2 Fraction of Inspired Oxygen ( FIO2) Constitutional: No apparent distress, Alert (Awake), Well nourished, Well appearing Oriented to: Time, Person, Place - HEENT Head: Normal ( normocephalic) Eye: Normal (PERRL, EOMI, Sclera white) Oropharynx: Normal (Pharynx:Moist without exudate,Gums-no swelling) Tympanic Membrane: Normal ENT EAC: Normal TMJ: Normal Nose: No Symptoms Reported (septum midline) - Respiratory/Cardiovascular Respiratory: Normal - CTA Cardiovascular: Normal - GI Auscultation: Normal (NABS) Palpation: Normal (Soft,No rebound or guarding, non distended) Tenderness: Non tender - Musculoskeletal Back: Normal (Non-Tender) Extremities: Normal (Normal tone, Pulses 2+ No cyanosis or edema, FROM) - Integumentary Skin: Normal, Warm, Dry Lymphatics: Normal (no adenopathy) - Neurologic Memory Impaired: Normal Cerebellar: Normal Mood Description: Normal Thought: Coherent Perception: Normal
--- NOTE | 2016-10-22 15:36 | CAPUEKG ---
[place], [place] Test Date: 2016-10-21 Pat Name: LEONOR RATLIFF Department: Room: 432 Gender: Female Entry Level Receptionist: KAM LAMBERTB: Requested By: Order Number: Reading MD: William Alford Measurements Intervals Wilber Rate: 56 P: 23 UT: 150 QRS: 21 QRSD: 86 T: 26 QT: 428 QTc: 413 Interpretive Statements Sinus bradycardia Otherwise normal ECG Electronically Signed On 10-22-16 15:36:12 EST by William Alford [id number] [id number]
[2016-10-22] MEDS ORDERED: HEPARIN 500 UNITS/5 ML (100 UNITS/ML) SYR FLUSH ONE (16:00)
[2016-10-22] MEDS ORDERED: ENOXAPARIN 40 MG/0.4 ML PFS SQ SCH (18:00)
[2016-10-23] MEDS ORDERED: DILTIAZEM HCL 120 MG CAPSULE.CR PO SCH (09:00)
== END 2016-10-22 16:40 | disposition home or self-care (01) ==
LOC: ED 08:52 → PCU 11:47
PROVIDERS: ADMIT Hospitalist; ATTEND Internal Medicine
DX: R07.9 Chest pain, unspecified (principal); R00.2 Palpitations; D45 Polycythemia vera; R06.02 Shortness of breath
CPT/HCPCS: 36415; 71010; 78452; 80053; 80061; 81001; 82947; 83880; 84484; 85025; 85610; 85730; 93005; 93017; 93306; 96360; 96361; 96372; 99284; A4216; A9500; G0378; J1642; J1650; J2785; J3490; 90656; 90732